=== PATIENT | female | born 1975 | race Caucasian/White ===

== ENCOUNTER 2020-02-06 17:14 | Emergency (ER) | payer OTHER, SELFPAY ==
[2020-02-06 17:28] VITALS: BP 111/75; PULSE 55; RESP 20; TEMP 36.6; O2SAT 100
--- NOTE | 2020-02-06 17:52 | ED.SKABFB ---
HPI - Skin/Abscess/Foreign Bdy General Chief complaint: Skin/Abscess/Foreign Body Stated complaint: r/elbow swollen Time Seen by Provider: 02/06/20 17:52 Source: patient and RN notes reviewed Limitations: no limitations History of Present Illness HPI narrative: 44 year old female who presents to express care with complaints of wasp sting to her right elbow which occurred 2 days ago.. Today she has noted increased swelling, warmth and increased pain to her right elbow area, has been taking Benadryl and applying hydrocortisone cream to elbow area with no improvement.Patient has moderate amount of swelling to tissue arond elbow area with some erythema and warmth noted to site. Patient has small bite area noted on right elbow with no drainage or induration of tissue noted at elbow region MD complaint: insect bite/sting Onset (ago): day(s) (2) Tetanus up to date: yes Severity: moderate Severity scale (1-10): 4 Quality: other (throbbing) Pain Consistency: constant Exacerbating factors: movement Associated symptoms: itching Treatments prior to arrival: OTC topical medication, Benadryl and NSAID Related Data Allergies Allergy/AdvReac Type Severity Reaction Status Date / Time Bumble Bee Allergy Unknown SWELLING Uncoded 03/16/18 08:08 AT SITE Review of Systems Review of Systems: Narrative: CONSTITUTIONAL: Denies fever, chills, or sweats. EYES: Denies visual changes, redness, or discharge. ENT: Denies rhinorrhea, congestion, sore throat, or otalgia. CARDIOVASCULAR: Denies chest pain, palpitations, or edema. RESPIRATORY: Denies cough or dyspnea. GASTROINTESTINAL: Denies abdominal pain, nausea, vomiting, or diarrhea. GENITOURINARY: Denies dysuria or hematuria. SKIN: positive for inflammation redness, warmth to right elbow from wasp sting MUSCULOSKELETAL: Denies back pain, joint pain, or myalgia. NEUROLOGIC: Denies headache, numbness, or weakness. PSYCHIATRIC: Denies anxiety or depression. All systems reviewed & are unremarkable except as noted in HPI and below PMFSH Past Medical History Medical History (Updated 02/07/20 @ 21:24 by Erika Plummer NP) Arthritis Surgical History Surgical History (Updated 02/06/20 @ 18:12 by Erika Plummer NP) H/O adenoidectomy History of arthroscopy of left knee History of arthroscopy of right knee Family History Family History Mother Hypertension Family history of Parkinson's disease, Onset Age: 50 Father Patient's father is in good health Sibling Family history of malignant neoplasm of thyroid, Onset Age: 47 Social History Social History (Updated 02/06/20 @ 18:12 by Erika Plummer NP) Smoking status: Never smoker Alcohol intake: current Living arrangements: with family Gender identity (if verbalized by the patient): Female Comments At time of signature, agree with nursing past medical, surgical, social and family history. There is no relevant family history pertinent to the presenting complaint Exam Narrative: Exam Narrative: GENERAL: Well-appearing, well-nourished, and in no acute distress. HEAD: Normocephalic, atraumatic. EYES: PERRLA and EOMI. ENT: Nares clear, no rhinorrhea or epistaxis. Mucous membranes moist. NECK: Supple.no lymphadenopathy CHEST: Clear to auscultation. No respiratory distress. HEART: Regular rate and rhythm. No murmur heard. Normal peripheral pulses. ABDOMEN: Soft, nontender, nondistended, normal active bowel sounds. EXTREMITIES: Normal range of motion. edema and warmth at right elbow region, full mobility of right elbow, sensation and circulation intact. SKIN: Warm, dry, no rash.bite area to right elbow with no drainage or tissue induration warmth and erythema at right elbow NEURO: No focal deficits. Alert and oriented x3. Course Vital Signs Vital signs: Vital Signs Temperature 36.6 C 02/06/20 17:28 Pulse Rate 55 L 02/06/20 17:28 Respiratory Rate 02/06/20 17:
== END 2020-02-06 18:13 | disposition home or self-care (01) ==
PROVIDERS: Emergency Provider Registered Nurse
DX: L03.113 Cellulitis of right upper limb (principal); S50.361A Insect bite (nonvenomous) of right elbow, initial encounter; M19.90 Unspecified osteoarthritis, unspecified site
CPT/HCPCS: 99213; G0463

== ENCOUNTER → 2020-05-11 13:46 | Outpatient (CLI) | payer OTHER, SELFPAY ==
--- NOTE | ~2020-05-11 | MM_ITS ---
EXAMINATION: MM screening [facility] BI w jonas HISTORY: Screening TECHNIQUE: Craniocaudal and mediolateral oblique 3-D tomosynthesis images were obtained and synthetic 2-D images were generated. CAD analysis was submitted and interpreted. COMPARISON: Comparison to multiple prior studies sequentially, with oldest reviewed study dated 03/02. BREAST PARENCHYMAL COMPOSITION: The breasts are extremely dense, which lowers the sensitivity of mamm ography. FINDINGS: There is no evidence of suspicious mass, calcification, or architectural distortion to sugg est malignancy in either breast. There has been no suspicious interval change. IMPRESSION: 1. No mammographic evidence of malignancy. 2. Recommend routine screening mammography in one year. BI-RADS Category 1: Negative Reviewed, dictated and finalized at location A. ACY MANAGER
== END ==
DX: Z12.31 Encounter for screening mammogram for malignant neoplasm of breast (principal)
CPT/HCPCS: 77063; 77067

== ENCOUNTER → 2020-09-14 15:24 | Outpatient (CLI) | payer OTHER, SELFPAY ==
--- NOTE | ~2020-09-14 | XR_ITS ---
XR lumbar spine 2-3V 09/14/2020 16:25 Indication: Low back pain Procedure: 3 views lumbar spine Comparison: 12/23/2013 Findings: Mild levoscoliosis. Grade 1 degenerative spondylolisthesis at L5-S1. Mild multilevel facet hypertrophy. No fracture or traumatic malalignment. Sacral foramen are symmetric. No significant disc narrowing. Impression: 1: Mild lumbar spondylosis. Reviewed, dictated and finalized at location A. [employer] Impression: 1: Mild lumbar spondylosis.
--- NOTE | ~2020-09-14 | XR_ITS ---
XR thoracic spine 3V 09/14/2020 16:25 Indication: Back pain Procedure: 3 views thoracic spine Comparison: No prior studies for comparison. Findings: Mild scoliosis. No fracture or traumatic malalignment. No paraspinal soft tissue abnormalit y. Visualized lung parenchyma is unremarkable. Impression: 1: Mild scoliosis. Reviewed, dictated and finalized at location A. OPERATIONS LEAD Impression: 1: Mild scoliosis.
== END ==
PROVIDERS: Visit Provider Internal Medicine
DX: M54.9 Dorsalgia, unspecified (principal); M47.816 Spondylosis without myelopathy or radiculopathy, lumbar region; M41.84 Other forms of scoliosis, thoracic region
CPT/HCPCS: 72072; 72100

== ENCOUNTER → 2022-11-15 17:13 | Outpatient (CLI) | payer OTHER, SELFPAY ==
--- NOTE | ~2022-11-15 | MM_ITS ---
EXAMINATION: MM screening [facility] BI w jonas HISTORY: Screening mammogram TECHNIQUE: Craniocaudal and mediolateral oblique 3-D tomosynthesis images were obtained and synthetic 2-D images were generated. CAD analysis was submitted and interpreted. COMPARISON: 05/11/2020, 10/11/2018, 05/16/2017 BREAST PARENCHYMAL COMPOSITION:The breasts are extremely dense, which lowers the sensitivity of mammo graphy. FINDINGS: No suspicious mass, calcification, or architectural distortion are identified in either ramon ast to suggest malignancy. There has been no suspicious interval change. IMPRESSION: No mammographic evidence of malignancy. Recommend routine screening mammography in one year. BI-RADS Category 1: Negative Reviewed, dictated and finalized at location .
== END ==
DX: Z12.31 Encounter for screening mammogram for malignant neoplasm of breast (principal)
CPT/HCPCS: 77063; 77067

== ENCOUNTER 2023-12-14 13:39 | Outpatient (CLI) | payer OTHER, SELFPAY ==
--- NOTE | ~2023-12-14 | MM_ITS ---
EXAMINATION: MM screening [facility] BI w jonas HISTORY: Screening TECHNIQUE: Craniocaudal and mediolateral oblique 3-D tomosynthesis images were obtained and synthetic 2-D images were generated. CAD analysis was submitted and interpreted. COMPARISON: Comparison to multiple prior studies sequentially, with oldest reviewed study dated 07/2014. BREAST PARENCHYMAL COMPOSITION: Dense: The breasts are extremely dense, which lowers the sensitivity of mammography. FINDINGS: There is no evidence of suspicious mass, calcification, or architectural distortion to sugg est malignancy in either breast. There has been no suspicious interval change. IMPRESSION: 1. No mammographic evidence of malignancy. 2. Recommend routine screening mammography in one year. BI-RADS Category 1: Negative Reviewed, dictated and finalized at location B.
== END 2023-12-14 13:40 ==
DX: Z12.31 Encounter for screening mammogram for malignant neoplasm of breast (principal)
CPT/HCPCS: 77063; 77067

== ENCOUNTER 2024-04-30 11:06 | Emergency (ER) | payer OTHER, SELFPAY ==
--- NOTE | 2024-04-30 11:08 | ED.DIZZY ---
HPI - Dizziness General Chief Complaint: Headache Stated Complaint: Headache/Dizziness Time Seen by Provider: 04/30/24 11:08 Source: patient Mode of arrival: ambulatory Limitations: no limitations History of Present Illness HPI Narrative: Kathryns a 48-year-old female patient presenting to the clinic today with complaints of dizziness/lightheadedness with headache. She reports headache started on Monday. States a sharp pain behind her right eye. No history of migraine headaches in the past. Also reports dizziness-feeling unsteady x1 week. Denies any URI symptoms. Denies any associated visual changes, chest pain, or shortness of breath. Took Tylenol today for pain and currently rates her pain at 4/10 when it was a 7 prior to taking the Tylenol. Has been taking Tylenol and Advil for her headache and it has not relieved it completely. At the time assessment patient is sitting comfortably in the room looking at a laptop computer. Related Data Home Medications Medication Instructions Recorded Confirmed acetazolamide 250 mg tablet 250 mg PO DIRECTED 04/30/24 04/30/24 Allergies Allergy/AdvReac Type Severity Reaction Status Date / Time bee venom protein (honey bee) Allergy Swelling Verified 04/30/24 11:23 [bees] Review of Systems Review of Systems: Pertinent positives per HPI. Patient denies any fever, chills, rash, visual changes, cough, runny nose, sore throat, shortness of breath, chest pain, palpitations, nausea, vomiting, diarrhea, constipation, abdominal pain, or any urinary issues. [facility] Past Medical History Medical History (Updated 04/30/24 @ 11:53 by Dago Madrigal APRN) Arthritis Chronic idiopathic constipation H/O Sjogren's disease Surgical History Surgical History H/O adenoidectomy History of arthroscopy of left knee History of arthroscopy of right knee Family History Family History Mother Hypertension Family history of Parkinson's disease, Onset Age: 50 Father Patient's father is in good health Sibling Family history of malignant neoplasm of thyroid, Onset Age: 47 Social History Social History Smoking status: Never smoker Alcohol intake: current Living arrangements: with family Gender identity (if verbalized by the patient): Female Comments At the time of my signature, I reviewed and agree with the nursing past medical, surgical, social, and family history. There is no relevant family history pertinent to the patient complaint. Exam Narrative: General: Well-developed, well nourished, in no apparent distress Head: Normocephalic, atraumatic Eyes: Pupils equally round and reactive to light bilaterally, EOM intact, sclera and conjunctive clear, no discharge, lids normal Ears: TMs intact and clear, ear canals clear, no drainage, grossly hearing normal. Nose: Nares patent, no discharge, no inflammation, no sinus tenderness. Mouth: Oropharynx without lesions or masses, good dentition, MMM. Tongue midline, even rise and fall of uvula Neck: Supple, trachea midline, no enlargement of anterior or posterior cervical nodes, no thyroid masses or goiter palpable. Cardio: Regular rate and rhythm, s1 and s2 normal, no murmur appreciated. Resp: Clear to auscultation bilaterally anteriorly and posteriorly, no rhonchi, rales, wheezing or rubs Musculoskeletal: No deformity, non-tender to palpation, grossly normal range of motion, muscle strength strong and equal, peripheral pulse strong, no edema, no cyanosis, normal gait and station Neuro: Alert and oriented x4 with normal speech, no focal deficits, cranial nerves I through XII intact, muscle strength 5 out of 5, sensation intact bilaterally, negative Romberg test Course Course Emergency Course: Portions of this record may have been created with voi
[2024-04-30 11:19] VITALS: BP 126/87; PULSE 61; RESP 16; TEMP 36.6; O2SAT 100
== END 2024-04-30 11:40 | disposition short-term general hospital (02) ==
PROVIDERS: Emergency Provider Nurse Practitioner Family
DX: R51.9 Headache, unspecified (principal); R42 Dizziness and giddiness; M19.90 Unspecified osteoarthritis, unspecified site; M35.00 Sjogren syndrome, unspecified
CPT/HCPCS: 99213; G0463

== ENCOUNTER 2024-04-30 11:59 | Emergency (ER) | payer OTHER, SELFPAY ==
--- NOTE | ~2024-04-30 | CT_ITS ---
CT brain wo con Ordering provider: Jose Marie III, DO History: 48 years Female with . headache . Comparison: None. Technique: CT of the head without contrast. Radiation reduction technique utilized. The dose-length product was 605.33 mGy-cm. FINDINGS: BRAIN PARENCHYMA AND CSF SPACES: No midline shift, mass effect or hemorrhage. The brain parenchyma a nd CSF spaces are otherwise normal. Empty sella turcica. VISUALIZED PARANASAL SINUSES: Well aerated. MASTOIDS: Well aerated. BONES: The bones appear intact. SOFT TISSUES: Visualized nasopharynx is normal. Superficial soft tissues are normal. IMPRESSION: No acute intracranial findings. Reviewed, dictated and finalized at location A.
[2024-04-30 12:20] VITALS: BP 147/91; PULSE 61; RESP 17; TEMP 36.4; O2SAT 100
--- NOTE | 2024-04-30 12:32 | ED.HA ---
HPI - Headache General Chief Complaint: Dizziness Stated Complaint: requesting ct scan of head Time Seen by Provider: 04/30/24 12:23 History of Present Illness HPI Narrative: Pt presents with TREVIÑO behind right eye for about a week. Pt describes it as a sharp pain in waves. tylenol and motrin help but do not relieve the pain. Pt says sometimes when she closes her eyes she feels a little unsteady but no real focal neuro deficits. Pt denies one side weakness or visual disturbance. Pt says putting heat and pressure on right eye helps. Pt denies vomiting or fever. Related Data Home Medications Medication Instructions Recorded Confirmed acetazolamide 250 mg tablet 250 mg PO DIRECTED 04/30/24 04/30/24 Allergies Allergy/AdvReac Type Severity Reaction Status Date / Time bee venom protein (honey bee) Allergy Swelling Verified 04/30/24 12:01 [bees] Review of Systems Review of Systems: All systems reviewed & are unremarkable except as noted in HPI and below PMFSH Past Medical History Medical History (Updated 04/30/24 @ 14:27 by Jose Marie III, DO) Arthritis Chronic idiopathic constipation H/O Sjogren's disease Surgical History Surgical History H/O adenoidectomy History of arthroscopy of left knee History of arthroscopy of right knee Family History Family History Mother Hypertension Family history of Parkinson's disease, Onset Age: 50 Father Patient's father is in good health Sibling Family history of malignant neoplasm of thyroid, Onset Age: 47 Social History Social History Smoking status: Never smoker Alcohol intake: current Living arrangements: with family Gender identity (if verbalized by the patient): Female Exam Const: General: healthy appearing, no acute distress and alert Nutritional Appearance: well nourished Orientation/consciousness: patient oriented x3 Limitations: no limitations HENMT: Head: normal to inspection Face and sinus: normal facial exam and sinuses nontender Mouth: Yes Normal oral and palatal mucosa present and Yes moist mucous membranes abnormal Eyes: Conjunctivae: conjunctivae normal Pupils: Equal, round and reactive pupils present EOM: EOMs intact bilaterally Direct Ophthalmoscopy: no photophobia Resp: Effort & Inspection: normal respiratory effort Auscultation: clear to auscultation bilaterally Cardio: Rate: regular rate Rhythm: regular rhythm GI: GI Palp: Yes Soft to palpation Auscultation: normal bowel sounds Skin: General skin exam: normal color Rashes: no rashes Wounds: no wounds Neuro: General: patient oriented x3, moves all extremities, no meningeal signs, no focal motor deficits and CN's II-XI intact bilaterally Cranial nerves: Yes Nystagmus not present Speech: normal speech Gait exam (Neuro): Normal gait present Extrem: General: normal to inspection and no clubbing, cyanosis or edema Psych: Mental Status: mental status grossly normal Affect: normal affect Attitude: cooperative Course Vital Signs Vital signs: Vital Signs Temperature 97.5 F L 04/30/24 12:20 Pulse Rate 61 04/30/24 12:20 Respiratory Rate 17 04/30/24 12:20 Blood Pressure 147/91 H 04/30/24 12:20 Pulse Oximetry 100 04/30/24 12:20 Temperature 97.5 F L 04/30/24 12:20 Pulse Rate 61 04/30/24 12:20 Respiratory Rate 17 04/30/24 12:20 Blood Pressure 147/91 H 04/30/24 12:20 Pulse Oximetry 100 04/30/24 12:20 MDM - Headache MDM Narrative Medical decision making narrative: Pt sent her from for right sided TREVIÑO behind right eye for a week. Pt sent here for CT so will order to rule out SAH or tumor or mass. IF CT ok will order toradol for pain since she drove. Pt had some relief with toradol. said still there a bit but much better. will send home on [facility]
[2024-04-30] MEDS: KETOROLAC 30 MG/ML VIAL (*BKC) IM (13:43)
[2024-04-30 14:38] VITALS: BP 119/84; PULSE 59; RESP 16; O2SAT 99
== END 2024-04-30 14:40 | disposition home or self-care (01) ==
PROVIDERS: Emergency Provider Emergency Medicine
DX: R51.9 Headache, unspecified (principal); M35.00 Sjogren syndrome, unspecified; M19.90 Unspecified osteoarthritis, unspecified site
CPT/HCPCS: 70450; 96372; 99284; J1885

== ENCOUNTER 2024-05-01 08:46 | Emergency (ER) | payer OTHER, SELFPAY ==
[2024-05-01 08:54] VITALS: BP 140/96; PULSE 62; RESP 16; TEMP 36.8; O2SAT 100
[2024-05-01] MEDS: FLUORESCEIN SOD 1 MG/STRIP (09:07)
[2024-05-01] MEDS: TETRACAINE HCL 0.5% OPHTH SOLN 4 ML BTL 1 DROP (09:08)
--- NOTE | 2024-05-01 09:22 | ED.GENADULT ---
HPI - General Adult General Chief complaint: Eye Problems Stated complaint: ?shingles Time Seen by Provider: 05/01/24 08:53 History of Present Illness HPI narrative: Patient is a 40-year-old female who presents ER with rash to right face and scalp. Reports she was seen here yesterday for a headache. Headache continues but she developed a rash today. Small vesicles mainly at the forehead moving to the upper eyelid. No change in vision but she does have some tearing. She had chickenpox when she was a child. Concerned she has shingles. Related Data Home Medications Medication Instructions Recorded Confirmed acetazolamide 250 mg tablet 250 mg PO DIRECTED 04/30/24 04/30/24 Allergies Allergy/AdvReac Type Severity Reaction Status Date / Time bee venom protein (honey bee) Allergy Swelling Verified 05/01/24 08:59 [bees] Review of Systems Review of Systems: All systems reviewed & are unremarkable except as noted in HPI and below Constitutional: Constitutional: Reports no additional constitutional complaints Eyes: Eyes: Denies change in vision and Reports photophobia ENT: Reports system reviewed and no additional complaints, except as documented Neurologic: Reports headache(s), Denies focal weakness and Denies numbness PMFSH Past Medical History Medical History (Updated 05/01/24 @ 09:23 by Edilberto Guadarrama MD) Arthritis Chronic idiopathic constipation H/O Sjogren's disease Surgical History Surgical History H/O adenoidectomy History of arthroscopy of left knee History of arthroscopy of right knee Family History Family History Mother Hypertension Family history of Parkinson's disease, Onset Age: 50 Father Patient's father is in good health Sibling Family history of malignant neoplasm of thyroid, Onset Age: 47 Social History Social History Smoking status: Never smoker Alcohol intake: current Living arrangements: with family Gender identity (if verbalized by the patient): Female Exam Narrative: GENERAL: Well-appearing, well-nourished, and in no acute distress. HEAD: Normocephalic, atraumatic. EYES: PERRLA and EOMI. Fluorescein staining of the right eye without evidence of abrasion or dendritic lesions. ENT: Mucous membranes moist. EXTREMITIES: Normal range of motion. No edema. SKIN: Warm, dry, no rash. NEURO: Alert and oriented x3. PSYCH: Normal mood and affect. Course Course Emergency Course: Discussed diagnosis and treatment plan. Return precautions given. Discharge. Vital Signs Vital signs: Vital Signs Temperature 98.2 F 05/01/24 08:54 Pulse Rate 62 05/01/24 08:54 Respiratory Rate 16 05/01/24 08:54 Blood Pressure 140/96 H 05/01/24 08:54 Pulse Oximetry 100 05/01/24 08:54 Oxygen Delivery Room Air 05/01/24 08:54 Temperature 98.2 F 05/01/24 08:54 Pulse Rate 62 05/01/24 08:54 Respiratory Rate 16 05/01/24 08:54 Blood Pressure 140/96 H 05/01/24 08:54 Pulse Oximetry 100 05/01/24 08:54 Oxygen Delivery Room Air 05/01/24 08:54 Medical Decision Making Vital Signs Vital Signs: Vital Signs Temperature 98.2 F 05/01/24 08:54 Pulse Rate 62 05/01/24 08:54 Respiratory Rate 16 05/01/24 08:54 Blood Pressure 140/96 H 05/01/24 08:54 Pulse Oximetry 100 05/01/24 08:54 Oxygen Delivery Room Air 05/01/24 08:54 Temperature 98.2 F 05/01/24 08:54 Pulse Rate 62 05/01/24 08:54 Respiratory Rate 16 05/01/24 08:54 Blood Pressure 140/96 H 05/01/24 08:54 Pulse Oximetry 100 05/01/24 08:54 Oxygen Delivery Room Air 05/01/24 08:54 Discharge Plan Discharge Clinical Impression: Shingles Patient Disposition: Home, Self-Care Condition: Stable Instructions: [place] (ED) Additional Instructions: Return to
== END 2024-05-01 09:41 | disposition home or self-care (01) ==
PROVIDERS: Emergency Provider Emergency Medicine
DX: B02.9 Zoster without complications (principal)
CPT/HCPCS: 99283

== ENCOUNTER 2024-05-01 21:08 | Emergency (ER) | payer OTHER, SELFPAY ==
[2024-05-01 21:09] VITALS: BP 149/89; PULSE 60; RESP 16; TEMP 36.6; O2SAT 100
[2024-05-01 22:19] VITALS: BP 134/98; PULSE 57; RESP 18; O2SAT 100
[2024-05-01] MEDS: GABAPENTIN 300 MG CAPSULE PO (23:15)
[2024-05-01] MEDS: ONDANSETRON HCL ODT 4 MG TABLET PO (23:15)
[2024-05-01] MEDS: ACETAMINOPHEN 500 MG TABLET 1000 MG PO (23:15)
[2024-05-01] MEDS: KETOROLAC 30 MG/ML VIAL (*BKC) IM (23:16)
--- NOTE | 2024-05-02 00:09 | ED.SKABFB ---
HPI - Skin/Abscess/Foreign Bdy General Chief complaint: Skin/Abscess/Foreign Body <Laine Durant PA-C - Last Filed: 05/02/24 01:49> Stated complaint: shingles in eye, vomitting, pain <Laine Durant PA-C - Last Filed: 05/02/24 01:49> Time Seen by Provider: 05/01/24 22:49 <Laine Durant PA-C - Last Filed: 05/02/24 01:49> History of Present Illness HPI narrative: 48-year-old female with history of Sjogren's presents to the emergency department for nausea and headache. Patient was seen in our emergency department yesterday for headache. She then presented this morning after vesicular rash developed and was diagnosed with shingles. She was started on Valtrex and [place]. Patient states she has been taking his medications today but the [place] has been making her very nauseous and she has been unable to tolerate p.o. intake. She states the [place] does not seem to be helping much with the pain. She reports tearing or redness to right eye but denies vision changes. <Laine Durant PA-C - Last Filed: 05/02/24 01:49> Related Data Home medications: Home Medications Medication Instructions Recorded Confirmed acetazolamide 250 mg tablet 250 mg PO DIRECTED 04/30/24 04/30/24 <Laine Durant PA-C - Last Filed: 05/02/24 01:49> Allergies/Adverse reactions: Allergies Allergy/AdvReac Type Severity Reaction Status Date / Time bee venom protein (honey bee) Allergy Swelling Verified 05/01/24 21:08 [bees] <Laine Durant PA-C - Last Filed: 05/02/24 01:49> Review of Systems Review of Systems: All systems reviewed & are unremarkable except as noted in HPI and below <Laine Durant PA-C - Last Filed: 05/02/24 01:49> PMFSH Past Medical History Medical History: Medical History Arthritis Chronic idiopathic constipation H/O Sjogren's disease <Laine Durant PA-C - Last Filed: 05/02/24 01:49> Surgical History Surgical History: Surgical History H/O adenoidectomy History of arthroscopy of left knee History of arthroscopy of right knee <Laine Durant PA-C - Last Filed: 05/02/24 01:49> Family History Family History: Family History Mother Hypertension Family history of Parkinson's disease, Onset Age: 50 Father Patient's father is in good health Sibling Family history of malignant neoplasm of thyroid, Onset Age: 47 <Laine Durant PA-C - Last Filed: 05/02/24 01:49> Social History Social History: Social History Smoking status: Never smoker Alcohol intake: current Living arrangements: with family Gender identity (if verbalized by the patient): Female <Laine Durant PA-C - Last Filed: 05/02/24 01:49> Exam Narrative: GENERAL: Well-appearing, well-nourished, and in no acute distress. HEAD: Normocephalic, atraumatic. EYES: Edema to the right upper lid, right scleral injection with clear tearing. EOMs intact. Forcing staining reveals a very small possible early dendritic lesion near the 6 o'clock position. Exam otherwise unremarkable ENT: Nares clear, no rhinorrhea or epistaxis. Mucous membranes moist. NECK: Supple. CHEST: Clear to auscultation. No respiratory distress. HEART: Regular rate and rhythm. No murmur heard. Normal peripheral pulses. EXTREMITIES: Normal range of motion. No edema. SKIN: Vesicular rash in the V1 distribution NEURO: No focal deficits. Alert and oriented x3. Cranial nerves 2-12 intact. <Laine Durant PA-C - Last Filed: 05/02/24 01:49> Course JUVENILE OFFICER/PA Physician Supervision For this patient encounter, I reviewed the JUVENILE OFFICER or PA documentation, treatment plan, and medical decision making and had [id number] time with this patient. I performed all aspect
[2024-05-02] MEDS: CAPSAICIN 0.025% CREAM 60 GM TUBE 1 APPLIC TOPICAL (00:18)
[2024-05-02 02:20] VITALS: BP 133/80; PULSE 89; RESP 18; O2SAT 99
== END 2024-05-02 02:21 | disposition home or self-care (01) ==
PROVIDERS: Emergency Provider Physician Assistant
DX: B02.30 Zoster ocular disease, unspecified (principal)
CPT/HCPCS: 96372; 99283; A9270; J1885